=== PATIENT | male | born 1995 | race Two or more races ===

== ENCOUNTER 2020-02-19 02:03 | Emergency (ER) | payer MEDICAID ==
[~2020-02-19] VITALS: Ht 170.2 cm; Wt 73.0 kg
[2020-02-19 02:05] VITALS: BP 147/86
== END 2020-02-19 03:56 | disposition home or self-care (01) ==
LOC: ER 02:03
DX: R07.89 Other chest pain (principal); R42 Dizziness and giddiness
CPT/HCPCS: 71045; 93005; 99283